=== PATIENT | female | born 1965 | race Two or more races ===

== ENCOUNTER → 2016-10-26 | Outpatient (CLI) | payer BC ==
[2015-03-23 16:45] VITALS: BP 135/79
[~2016-10-26] MED LIST: BYSTOLIC10 MG PO; CLON1PAT TD; LOSA1TAB12 PO; METF500T4 PO; TRAZ50TA15 PO
--- NOTE | 2016-10-26 13:14 | KCIC ---
Clinical Indication: Left lower extremity pain and swelling Technique: Study is dated October 26, 2016. Grayscale, color flow and spectral waveform analysis was performed of the left lower extremity with and without compression. Findings: There is normal compressibility of all visualized vein segments. No evidence of DVT is present on grayscale or color images. There is normal phasicity of waveform. There is normal augmentation. Scanning superior to the knee at the patient's area of pain demonstrates no abnormality by ultrasound. Impression: No evidence of deep vein thrombosis. Electronically signed by: Amaury Kauffman MD (10/26/2016 1:11 PM)
== END | disposition home or self-care (01) ==
LOC: KCIC US 12:20
PROVIDERS: ATTEND Nurse Practitioner Adult Health
DX: M79.605 Pain in left leg (principal); M79.89 Other specified soft tissue disorders
CPT/HCPCS: 93971

== ENCOUNTER → 2017-12-20 | Outpatient (CLI) | payer BC ==
[2015-03-23 16:45] VITALS: BP 135/79
[~2017-12-20] MED LIST changes: -METF500T4 PO; +METF500T5 PO; +TRAZ-85 PO; -TRAZ50TA15 PO
--- NOTE | 2017-12-20 17:29 | KCIC ---
Bilateral digital screening mammograms with 3-D tomosynthesis: Reason for examination: Routine baseline screening. Bilateral mammograms in CC and oblique projections were obtained with 2-D imaging and 3-D tomosynthesis imaging on a [employer] unit and reviewed on the workstation. Interpretation was made with the benefit of CAD. The skin and nipples show no abnormalities. No abnormal axillary lymph nodes are seen. The breast parenchyma is predominantly fatty. (Breast density: Category A.) There is some patchy asymmetric parenchyma at the 10:00 B position of the right breast. There are intramammary lymph nodes seen bilaterally. There are no dominant masses, suspicious calcifications or architectural distortion. Impression: Asymmetric parenchyma at the 10:00 B position of the right breast. Recommend further evaluation with ultrasound. BI-RAD Category 0: Incomplete. Needs additional imaging evaluation. "Our facility is accredited by the [employer] Mammography [employer]." This patient's information has been entered into a reminder system for the patient to be notified with the results of her examination and a target date for the next mammogram. Electronically signed by: Zoë Duong MD (12/20/2017 5:25 PM) [id number]
== END | disposition home or self-care (01) ==
LOC: KCIC MAMMO 12:22
PROVIDERS: ATTEND Internal Medicine
DX: Z12.31 Encounter for screening mammogram for malignant neoplasm of breast (principal); I10 Essential (primary) hypertension; E11.8 Type 2 diabetes mellitus with unspecified complications; Z90.710 Acquired absence of both cervix and uterus
CPT/HCPCS: 77063; 77067

== ENCOUNTER → 2017-12-31 | Outpatient (CLI) | payer BC ==
[2015-03-23 16:45] VITALS: BP 135/79
--- NOTE | 2017-12-31 14:55 | KCIC ---
Right breast ultrasound: Reason for examination: Abnormal screening mammogram. Comparison is made to mammographic exam dated 12/20/2017. Ultrasound examination of the right breast was performed with attention to the area of mammographic concern and the right axilla. At the 10:00 position 8 cm from the nipple, there is a hypoechoic irregularly marginated mass measuring at least 1.2 cm in greatest dimensions. Malignancy cannot be excluded and ultrasound-guided biopsy is recommended. No other focal lesions are seen. No abnormal appearing lymph nodes are seen in the axilla. IMPRESSION: 1.2 cm irregularly marginated nodule at the 10:00 position 8 cm from the nipple in the right breast. Malignancy is suspected. Recommend further evaluation with ultrasound-guided biopsy. The patient was notified of these findings at the time of the examination and was advised to follow-up with Dr. Farooq to schedule a biopsy. Dr. Farooq's office was notified regarding these findings at 1440 on 12/31/2017 via a message left on Dr. Farooq's nurse's answering machine. BI-RADS Category 5: Highly suggestive of malignancy. "Our facility is accredited by the [employer] Mammography Program." This patient's information has been entered into a reminder system for the patient to be notified with the results of her examination and a target date for the next mammogram. Electronically signed by: Zoë Duong MD (12/31/2017 2:51 PM) [id number]
== END | disposition home or self-care (01) ==
LOC: KCIC US 14:07
PROVIDERS: ATTEND Internal Medicine
DX: R92.8 Other abnormal and inconclusive findings on diagnostic imaging of breast (principal)
CPT/HCPCS: 76641